=== PATIENT | male | born 1985 | race African-American/Black ===

== ENCOUNTER → 2019-05-06 | Outpatient (CLI) | payer BC, OTHER ==
[2019-05-06 18:42] LABS: CHLAM PCR NOT DETECTED (NOT DETECT)
== END ==
LOC: LAB 17:03
PROVIDERS: ATTEND Nurse Practitioner Family
DX: R30.0 Dysuria (principal); Z20.2 Contact with and (suspected) exposure to infections with a predominantly sexual mode of transmission
CPT/HCPCS: 87086; 87491; 87591